=== PATIENT | male | born 1960 | race Caucasian/White ===

== ENCOUNTER 2018-07-12 08:12 | Day surgery (SDC) | payer OTHER ==
[2018-07-12 07:19] VITALS: PULSE 66; TEMP 97
[2018-07-12] MEDS: MIDAZOLAM 2 MG/2 ML VIAL IV ONE ×2 (07:36→07:47)
[~2018-07-12 08:12] MED LIST: ASPIRIN 325 MG TAB PO STA; IOPAMIDOL-370 125ML BTL INJ ONE; IOPAMIDOL-370 50ML BTL INJ ONE; IV FLUID CONTINUATION 1,000 ML IV ONE; LIDOCAINE 1% INJ 10MG/ML (20 ML MDV) ONE; LIDOCAINE 1% INJ 10MG/ML (20 ML MDV) SQ ONE; MIDAZOLAM 2 MG/2 ML VIAL IV ONE; MIDAZOLAM 2 MG/2 ML VIAL ONE; NITROGLYCERIN SL TABS 0.4 MG TAB SUBLINGUAL PRN; SODIUM CHLORIDE 0.9% 1,000 ML in EMPTY BAG 1 BAG IV ONE; diphenhydrAMINE 50 MG/ML 1 ML VIAL ONE; fentaNYL (PF) 50 MCG/ML 2 ML AMP IV ONE; fentaNYL (PF) 50 MCG/ML 2 ML AMP ONE
[2018-07-12] MEDS ORDERED: RX INFO: IV CONTRAST WAS GIVEN 1 EACH MISC MISCELLANE PRN (08:16)
[2018-07-12] MEDS ORDERED: SODIUM CHLORIDE 0.9% 1,000 ML IV SCH (08:30)
[2018-07-12] MEDS ORDERED: HYDROcodone/APAP 10-325MG 1 EACH TAB PO ONE (08:49)
--- NOTE | 2018-07-12 09:12 | CC ---
CARDIAC CATHETERIZATION REPORT INDICATION: Chest pain with abnormal stress echo showing anterolateral ischemia. PROCEDURE NOTE: After obtaining informed consent, left heart catheterization and coronary angiogram are performed via the right femoral artery using standard Julia catheters. The patient tolerated the procedure well without any obvious immediate complications. A femoral angiogram was performed and Angio-Seal was deployed for hemostasis. We engaged the left coronary artery using standard size 4 left Julia and the right coronary artery using the right Julia. 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 We tried to locate it using a multipurpose catheter and an Amplatz catheter, which we could not. I advised him to undergo a CT angiogram of the coronary arteries in the outpatient, through Dr. 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 FINDINGS: 1. HEMODYNAMICS. Left ventricular end-diastolic pressure is 12 to 14 mm. There is no significant gradient across the aortic valve. 2. LEFT VENTRICULOGRAM. Left ventriculogram is not performed. 3. AORTOGRAM. Aortogram was performed in left lateral position, shows a normal-size aorta without any aneurysm or dissection. There is an anomalous vessel that seemed to be coming right next to the right coronary artery. ANGIOGRAPHIC: 1. Left main coronary artery is a normal-sized vessel and is free of stenosis. It divides into LAD and a smaller vessel, which seems more like a septal mba intern, that has a 40% stenosis in it. LAD and its branches are free of significant stenosis. 2. Right coronary artery is a large dominant vessel and is free of significant stenosis. CONCLUSIONS: 1. 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 2. 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 3. Large dominant right coronary artery, free of disease. PLAN: 1. Patient should continue with optimal and aggressive medical therapy. 2. 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 MMODL / IJN: [id number] /
[2018-07-12 12:38] VITALS: RESP 18
[2018-07-12 13:51] VITALS: BP 134/72
== END 2018-07-12 13:20 | disposition home or self-care (01) ==
LOC: CATHCVL 08:12
PROVIDERS: ATTEND Internal Medicine Cardiovascular Disease
DX: I25.10 Atherosclerotic heart disease of native coronary artery without angina pectoris (principal); Z87.891 Personal history of nicotine dependence; Z88.5 Allergy status to narcotic agent; Z88.8 Allergy status to other drugs, medicaments and biological substances; Z79.82 Long term (current) use of aspirin; Z79.899 Other long term (current) drug therapy; Z91.048 Other nonmedicinal substance allergy status
CPT/HCPCS: 93458; 93567; C1760; C1894; C1769; J2250; J2001; J3010; Q9967 ×2

== ENCOUNTER 2025-05-17 17:39 | Emergency (ER) | payer OTHER ==
[2025-05-17 17:57] VITALS: TEMP 97.8
[2025-05-17] MEDS: HYDROmorphone 1 MG/ML 1 ML SYRINGE IM STA (19:46)
[2025-05-17] MEDS: KETOROLAC 15 MG/ML 1 ML VIAL IM STA (19:49)
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
[2025-05-17 20:49] VITALS: BP 164/96; PULSE 83; RESP 18
[2025-05-17] MEDS: diazePAM 5 MG TAB PO STA (20:53)
== END 2025-05-17 20:54 | disposition home or self-care (01) ==
LOC: EC 17:39
DX: R10.9 Unspecified abdominal pain (principal); G89.29 Other chronic pain; Z88.5 Allergy status to narcotic agent; Z88.8 Allergy status to other drugs, medicaments and biological substances
CPT/HCPCS: 99283; 96372; J1171; J1885; J7512